=== PATIENT | female | born 1950 | race Caucasian/White ===

== ENCOUNTER 2020-12-22 06:44 | Day surgery (SDC) | payer OTHER, SELFPAY ==
[~2020-12-22] VITALS: Ht 171.4 cm; Wt 100.2 kg
[2020-12-22] MEDS ORDERED: CEFAZOLIN SOD 1 GM in D5W 50 ML IV ONE (07:00)
[2020-12-22] MEDS ORDERED: SEVOFLURANE 15 MIN GAS INH ONE (09:53)
[2020-12-22] MEDS ORDERED: fentaNYL CITRATE 250 MCG/5 ML AMP IV ONE (09:53)
[2020-12-22] MEDS ORDERED: DEXAMETHASONE SOD PHOSPHATE 4 MG/ML VIAL IVP ONE (09:53)
[2020-12-22] MEDS ORDERED: MIDAZOLAM HCL 5 MG/5 ML VIAL IVP ONE (09:53)
[2020-12-22] MEDS ORDERED: NS IRRIG SOLN 1000 ML IR ONE (09:53)
[2020-12-22] MEDS ORDERED: ONDANSETRON HCL 4 MG/2 ML VIAL IVP ONE (09:53)
[2020-12-22] MEDS ORDERED: BUPIVACAINE /PF 0.25% 30 ML VIAL INJ ONE (09:53)
[2020-12-22] MEDS ORDERED: GLYCOPYRROLATE 0.2 MG/ML VIAL IJ ONE (09:53)
[2020-12-22] MEDS ORDERED: PROPOFOL 200MG/ 20ML VIAL (DIPRIVAN) IV ONE (09:53)
[2020-12-22] MEDS ORDERED: LR 1,000 ML IV.SOLN IV ONE (09:53)
[2020-12-22] MEDS ORDERED: MIDAZOLAM HCL 2 MG/2 ML VIAL (VERSED) IVP PRN (10:45)
[2020-12-22] MEDS ORDERED: MEPERIDINE HCL/PF 25 MG/ML DISP.SYRIN IVP PRN (10:45)
[2020-12-22] MEDS ORDERED: ONDANSETRON HCL 4 MG/2 ML VIAL IVP PRN (10:45)
[2020-12-22] MEDS ORDERED: LR 1,000 ML IV SCH (10:45)
[2020-12-22] MEDS ORDERED: METOCLOPRAMIDE HCL 10 MG/2 ML VIAL IVP PRN (10:45)
[2020-12-22] MEDS ORDERED: HYDROmorphone 1 INJ. 1 MG/ML CARTRIDGE IVP PRN ×2 (10:45)
[2020-12-22] MEDS ORDERED: D5/0.45 NS 1,000 ML IV SCH (11:15)
[2020-12-22] MEDS ORDERED: HYDROcodone/ACETAMIN 5-325 MG TAB (NORCO/ VICODIN) PO PRN ×2 (11:15)
[2020-12-22 12:19] VITALS: BP_SYST 129
== END 2020-12-22 12:40 | disposition home or self-care (01) ==
LOC: SDS 06:44 → SMU 06:44 → EDSTATUS 10:40 → SDS 12:40
PROVIDERS: ATTEND Colon & Rectal Surgery
DX: N63.0 Unspecified lump in unspecified breast (principal); D24.2 Benign neoplasm of left breast; E66.01 Morbid (severe) obesity due to excess calories; K21.9 Gastro-esophageal reflux disease without esophagitis; E78.5 Hyperlipidemia, unspecified; E11.22 Type 2 diabetes mellitus with diabetic chronic kidney disease; N18.30 Chronic kidney disease, stage 3 unspecified; E03.9 Hypothyroidism, unspecified; F32.9 Major depressive disorder, single episode, unspecified; Z20.828 Contact with and (suspected) exposure to other viral communicable diseases; Z79.899 Other long term (current) drug therapy
CPT/HCPCS: 19281; 82962; 88305; 88341; 88342; J0690; J1100; J2250; J2405; J2704; J3010; J3490 ×2; J7060; J7120; U0003

== ENCOUNTER 2023-12-06 10:25 | Outpatient (CLI) | payer OTHER | END 2023-12-06 20:34 | disposition home or self-care (01) | LOC: SNM 10:25 | PROVIDERS: ATTEND Urology | DX: N13.30 Unspecified hydronephrosis (principal); R10.11 Right upper quadrant pain | CPT/HCPCS: 78708; A9562 ==